=== PATIENT | female | born 1945 | race Caucasian/White ===

== ENCOUNTER → 2025-04-20 10:43 | Outpatient (CLI) | payer MEDICARE, SELFPAY ==
--- NOTE | 2025-04-20 10:46 | DI.RAD.S_ITS ---
PROCEDURE: XR DEXA AXIAL SKELETON INDICATIONS: bilateral knee pain COMPARISON: None. FINDINGS: Lumbar Spine: Bone mineral density 1.019 g/cm2, T score -0.5. Left Femoral Neck: Bone mineral density 0.746 g/cm2, T score -0.9. Left Hip: Bone mineral density 0.799 g/cm2, T score -1.2. Fracture Risk Calculation (when applicable): 10-year fracture risk of a major osteoporotic fracture 12 percent and of a hip fracture 2.7 percent. (T score greater or equal to -1.0 to: NORMAL) (T score from -1.1 to -2.4: OSTEOPENIA) (T score less than or equal to -2.5: OSTEOPOROSIS) IMPRESSION: Osteopenia--- recommend repeat DEXA in 2-3 years for reassessment. Follow-up guidelines as follows: Osteoporosis: Consider a repeat DEXA and Vertebral Fracture Assessment (VFA) exam in 2 years or sooner if medically necessary, to reassess this patient's status. Osteopenia: Consider a repeat DEXA in 2-3 years to reassess this patient's status, or if there is a new clinical indication. Normal: Consider a repeat DEXA in 5 years or sooner, or if there is a new clinical indication. All treatment decisions require clinical judgment and consideration of individual patient factors, including patient preferences, comorbidities, previous drug use, risk factors not captured in the FRAX model (e.g., frailty, falls, vitamin D deficiency, increased bone turnover, interval significant decline in bone density ) and possible under- or over-estimation of fracture risk by FRAX. In addition, the NOF Guide recommends that FDA-approved medical therapies be considered in postmenopausal women and men age >= 50 years with a: * Hip or vertebral (clinical or morphometric) fracture * T-score of <=-2.5 at the spine or hip * Ten-year fracture probability by FRAX of >= 3% for hip fracture or >=20% for major osteoporotic fracture. Dictated by: Faizan Bennett M.D. on 04/20/2025 at 19:15 Approved by: Faizan Bennett M.D. on 04/20/2025 at 19:16
== END ==
LOC: RAD 10:45
PROVIDERS: PCP Family Medicine; Referring Provider Orthopaedic Surgery Adult Reconstructive Orthopaedic Surgery; Visit Provider Orthopaedic Surgery Adult Reconstructive Orthopaedic Surgery
DX: M85.89 Other specified disorders of bone density and structure, multiple sites (principal)
CPT/HCPCS: 77080; 77081

== ENCOUNTER 2025-05-31 09:43 | Emergency (ER) | payer MEDICARE, SELFPAY ==
[2025-05-31] VITALS (23 sets, daily range): BP systolic 122–172; BP diastolic 67–98; PULSE 25–92; RESP 17–42; TEMP 36.1; O2SAT 91–99; BMI 22.6
--- NOTE | 2025-05-31 09:53 | DI.RAD.S_ITS ---
PROCEDURE: XR SHOULDER RT MIN 2V INDICATIONS: fall,shoulder pain TECHNIQUE: 2 views of the shoulder were acquired. COMPARISON: None. FINDINGS/IMPRESSION: Inferior, anterior dislocation of the glenohumeral joint. Dictated by: Nitish Garcia M.D. on 05/31/2025 at 10:17 Approved by: Nitish Garcia M.D. on 05/31/2025 at 10:19
--- NOTE | 2025-05-31 09:58 | ED_ITS ---
HPI - Fall General Chief Complaint: Fall Stated Complaint: DISLOCATED SHOULDER RT, FALL TRIP Time Seen by Provider: 05/31/25 09:54 Source: patient Mode of arrival: Ambulatory History of Present Illness HPI Narrative: Patient here with for complaints of right shoulder pain/possible dislocation. Patient was walking her dog tripped fell and landed on her right shoulder. There is drop off deformity of the right shoulder. No elbow wrist or hand/forearm injury/pain. Patient is not on blood thinners. Patient has had dislocation of the left shoulder in the past with relocation. Related Data Home Medications ?Medication ?Instructions ?Recorded ?Confirmed cyclosporine 0.05 % eye drops in a 1 drp OPHTH ##0 04/1805/18/25 dropperette (Restasis) multivitamin (Multiple Vitamins ##0 03/10/17 05/18/25 tablet) Previous Rx's ?Medication ?Instructions ?Recorded diclofenac sodium 3 % topical gel 1 applic topical BID #100 grams 05/18/25 Allergies Allergy/AdvReac Type Severity Reaction Status Date / Time No Known Allergies Allergy Uncoded 05/31/25 09:51 Review of Systems Review of Systems Narrative: GENERAL: Negative chills, fatigue, malaise, fever, sweats. HEENT: Negative sinus pain, ear pain, sore throat RESPIRATORY: Negative dyspnea, cough CARDIOVASCULAR: Negative chest pain, palpitations GASTROINTESTINAL: Negative vomiting, nausea, abdominal pain : Negative dysuria, frequency, hematuria MUSCULOSKELETAL: Positive muscle or bony pain SKIN: Negative rash, skin lesions NEUROLOGIC: Negative weakness, numbness ROS Unobtainable: All systems reviewed & are unremarkable except as noted in HPI and below Patient History Medical History (Updated 05/31/25 @ 12:02 by Andrei Kidd MD) Primary osteoarthritis of both knees Social History Smoking Status: Unknown if ever smoked Smoking Status: Unknown if ever smoked Exam Narrative Exam Narrative: GENERAL: in no distress, not toxic not dyspneic HEAD: Normocephalic. EYES: Pupils equal round ENT: Mucous membranes moist. NECK: Trachea midline. No midline tenderness or step-off. CARDIOVASCULAR: Regular rate and rhythm RESPIRATORY: Clear to auscultation. Breath sounds equal bilaterally. No wheezes, rales, or rhonchi. GASTROINTESTINAL: Abdomen soft, non-tender BACK: No flank tenderness. EXTREMITIES: Examination right upper extremity there is drop off anterior right shoulder. Limited range of motion due to deformity and pain. Strong right bus assistant and radial pulse brisk cap refills light touch intact to fingers and thumb, nontender elbow and wrist. NEURO: AOx4. Clear speech SKIN: Warm and dry PSYCH: Not anxious, is cooperative Initial Vital Signs Initial Vital Signs: Vital Signs Temperature 97.0 F L 05/31/25 09:49 Pulse Rate 92 H 05/31/25 09:49 Respiratory Rate 17 05/31/25 09:49 Blood Pressure 161/80 H 05/31/25 09:49 Pulse Oximetry 95 05/31/25 09:49 Oxygen Delivery Method Room Air 05/31/25 09:49 Procedures Orthopedic Joint Reduction Joint #1: Time of procedure: 11:49 Time Out Performed: Yes Side: right Joint Reduction Location: shoulder Analgesia: procedural sedation Shoulder Technique Used (if applicable): traction/counter-traction Technique used: traction/counter-traction Post-reduction neuro exam: intact Post-reduction vascular: intact Post Reduction X-Ray Obtained: Yes Post Reduction X-Ray Results: reduced Patient Tolerated Procedure: Well and No complications Additional Comments: Sling applied Procedural Sedation Time of procedure: 11:40 Consent signed: Yes Time out performed: Yes Indication: fracture/dislocation reduction Presedation Evaluation: Airway assessed prior to start of procedure? [Y/N] Procedural Sedation Time of Procedure: 1142 a.m. Consent Signed: Yes ASA Class: 1 Mallampati Airway Classification: 1 Time Out Performed: Yes Indication: Right shoulder dislocation Preparation: student success coach pulse oximeter capnometry supplemental oxygen applied reversal agents available suction and airway equipment at bedside and IV secured Bedside and IV Secured: Yes IV Propofol Dose (mg): 60 mg ED Sedation Level: Moderate Patient Tolerated Procedure: Very well Complications: None ASA Class: I Mallampati Airway Classification: Class I Time of Last PO Intake: 07:00 Preparation: slice plug cutter operator helper applied, pulse oximeter, capnometry used, supplemental O2 applied, reversal agents at bedside, suction/airway equipment at bedside and IV secured IV Propofol dose (mg): 60 Intraservice time/total sedation time (min): 2 ED Sedation Level: Moderate (Concious) Patient Tolerated Procedure: Well and No complications Complications: none Course Orders Ordered: ED Orders 05/31/25 09:53 XR shoulder RT 2+ views Stat 05/31/25 11:56 XR shoulder RT 1V Stat Discontinued Medications Fentanyl (Fentanyl 100 Mcg/2 Ml Inj) 100 mcg IV NOW ONE Stop: 05/31/25 09:58 Last Admin: 05/31/25 10:11 Dose: 100 mcg Documented By: PAMELA Hydromorphone HCl (Hydromorphone 1 Mg/Ml Syringe) 1 mg IV NOW ONE Stop: 05/31/25 11:16 Last Admin: 05/31/25 11:30 Dose: 1 mg Documented By: BETSY Ondansetron HCl (Ondansetron 4 Mg/2 Ml Inj) 4 mg IV NOW ONE Stop: 05/31/25 09:58 Last Admin: 05/31/25 10:11 Dose: 4 mg Documented By: PAMELA Ondansetron HCl (Ondansetron 4 Mg Odt) 4 mg SL NOW ONE Stop: 05/31/25 13:34 Last Admin: 05/31/25 13:36 Dose: 4 mg Documented By: BETSY Propofol (Propofol 200 Mg/20 Ml Vial) 60 mg 1 mg/kg (60 mg) IV NOW ONE Stop: 05/31/25 11:31 Last Admin: 05/31/25 11:44 Dose: 60 mg Documented By: BETSY Vital Signs Vital signs: Vital Signs - 8 hr 05/31/25 09:49 05/31/25 11:32 05/31/25 11:35 Temperature 97.0 F L Pulse Rate 92 H 75 25 L Respiratory Rate 17 25 H 28 H Blood Pressure 161/80 H 165/91 H 167/98 H Pulse Oximetry 95 97 97 Oxygen Delivery Method Room Air Room Air 05/31/25 11:40 05/31/25 11:45 05/31/25 11:50 Temperature Pulse Rate 77 69 69 Respiratory Rate 28 H 19 25 H Blood Pressure 172/96 H 165/91 H 153/82 H Pulse Oximetry 97 97 96 Oxygen Delivery Method Room Air Room Air 05/31/25 11:55 05/31/25 11:58 05/31/25 11:59 Temperature Pulse Rate 60 68 66 Respiratory Rate 23 22 25 H Blood Pressure 153/74 H 153/82 H Pulse Oximetry 96 98 Oxygen Delivery Method Room Air 05/31/25 12:00 05/31/25 12:03 05/31/25 12:10 Temperature Pulse Rate 70 74 70 Respiratory Rate 23 42 H 17 Blood Pressure 151/88 H Pulse Oximetry 96 95 96 Oxygen Delivery Method Room Air 05/31/25 12:10 05/31/25 12:16 05/31/25 12:16 Temperature Pulse Rate 72 Respiratory Rate 28 H Blood Pressure 147/77 H 144/72 H Pulse Oximetry 96 Oxygen Delivery Method 05/31/25 12:20 05/31/25 12:20 05/31/25 12:25 Temperature Pulse Rate 71 Respiratory Rate 29 H Blood Pressure 149/76 H 149/77 H Pulse Oximetry 97 Oxygen Delivery Method 05/31/25 12:25 05/31/25 12:30 05/31/25 12:30 Temperature Pulse Rate 66 67 Respiratory Rate 29 H 28 H Blood Pressure 157/75 H Pulse Oximetry 96 97 Oxygen Delivery Method 05/31/25 12:35 05/31/25 12:35 05/31/25 12:40 Temperature Pulse Rate 68 70 Respiratory Rate 22 22 Blood Pressure 153/67 H Pulse Oximetry 97 96 Oxygen Delivery Method 05/31/25 12:40 05/31/25 12:51 05/31/25 12:51 Temperature Pulse Rate 66 Respiratory Rate 24 Blood Pressure 149/86 H 135/72 Pulse Oximetry 95 Oxygen Delivery Method 05/31/25 12:55 05/31/25 13:05 05/31/25 13:05 Temperature Pulse Rate 69 Respiratory Rate 21 Blood Pressure 134/74 136/71 Pulse Oximetry 91 Oxygen Delivery Method 05/31/25 13:10 05/31/25 13:15 05/31/25 13:15 Temperature Pulse Rate 68 Respiratory Rate 18 Blood Pressure 122/76 154/80 H Pulse Oximetry 95 Oxygen Delivery Method MDM - Fall Lab Data Labs: Point of Care Testing Test Results Not applicable Imaging Data Extremity x-ray #1: Radiologist's Impression: [address] [address] XRay Report Signed Patient: Vicky Granados MR#: [id number] : 1945 Acct:[id number] Age/Sex: 79 / F Date of Service: 05/31/25 Loc: ED Accession Number: [id number] Procedure: XR shoulder RT 2+ views Ordering Provider: Andrei Kidd MD PROCEDURE: XR SHOULDER RT MIN 2V INDICATIONS: fall,shoulder pain TECHNIQUE: 2 views of the shoulder were acquired. COMPARISON: None. FINDINGS/IMPRESSION: Inferior, anterior dislocation of the glenohumeral joint. Dictated by: Nitish Garcia M.D. on 05/31/2025 at 10:17 Approved by: Nitish Garcia M.D. on 05/31/2025 at 10:19 Extremity x-ray #2: Radiologist's Impression: [address] [address] XRay Report Signed Patient: Vicky Granados MR#: [id number] : 1945 Acct:[id number] Age/Sex: 79 / F Date of Service: 05/31/25 Loc: ED Accession Number: [id number] Procedure: XR shoulder RT 1V Ordering Provider: Andrei Kidd MD PROCEDURE: XR SHOULDER RT 1V INDICATIONS: Postreduction TECHNIQUE: 1 views of the shoulder were acquired. COMPARISON: [facility], , XR SHOULDER RT 2+ VIEWS, 05/31/2025, 9:48. FINDINGS: Bones: Satisfactory reduction of previous anterior shoulder dislocation. No Hill-Sachs deformity noted. Glenohumeral joint degenerative change. Soft tissues: No suspicious soft tissue calcifications. IMPRESSION: Satisfactory reduction of shoulder dislocation. Dictated by: Daniel Mitchell M.D. on 05/31/2025 at 12:31 Approved by: Daniel Mitchell M.D. on 05/31/2025 at 12:31 [facility] Narrative Medical decision making narrative: Patient here with for complaints of right shoulder pain/possible dislocation. Patient was walking her dog tripped fell and landed on her right shoulder. There is drop off deformity of the right shoulder. No elbow wrist or hand/forearm injury/pain. Patient is not on blood thinners. Patient has had dislocation of the left shoulder in the past with relocation MDM After history and exam, fentanyl Zofran x-ray right shoulder, possible procedural sedation for closed reduction Differential considered: Includes but not limited to shoulder dislocation/strain sprain Medical records reviewed: No recent visit for this complaint Imaging studies independently reviewed: X-ray right shoulder inferior anterior dislocation, repeat x-ray right shoulder post reduction, anatomically reduced. Consultations: Patient has established orthopedic, Dr. Starks to follow up with. Re-evaluations: 11:00 a.m.. Reviewed results with patient and she does agree for consent for procedural sedation and closed reduction of the right shoulder. She states she would like her friend to sign for her. She is awake alert orient x4. Procedural sedation time-out at 11:42 a.m.., start of sedation 11:49 a.m.. Completion at 11:50 a.m.. Patient awake alert oriented x4. Clear speech. No hypoxia no tachypnea airway intact. Patient in no respiratory distress. 12:42 p.m.. Patient remains awake alert oriented x4. Airway intact. No respiratory distress. Reviewed with her results and treatment plan and follow up. She agrees. She has a driver material handler. Discussion: Appropriate for discharge home. Exam is reassuring. Return precautions reviewed with patient. Pain is controlled. Patient has established orthopedic provider to follow up with Dr. Starks. Patient has a driver material handler. Diagnosis: Right shoulder dislocation Discharge Plan Departure Patient Disposition: Home Clinical Impression: Anterior dislocation of right shoulder Qualifiers: Encounter type: initial encounter Qualified Code(s): S43.014A - Anterior disloc ation of right humerus, initial encounter Instructions: DI for Shoulder Dislocation, DI for Moderate Sedation Activity Restrictions/Additional Instructions: No driving operating machinery until seen by orthopedic provider for clearance. May continue ibuprofen or Tylenol for pain. Use sling until office appointment time. Return if worse if any questions or concerns. Prescriptions: No Action multivitamin [Multiple Vitamins] 1 EACH tablet Qty: 0 cyclosporine [Restasis] 1 EACH dropperette 1 drp OPHTH Qty: 0 diclofenac sodium 3 % gel 1 applic topical BID Qty: 100 0RF Referrals: Anderson Ambrosio MD [Physician, Orthopedic Surgery] Amina Beth DO [Primary Care Provider, Family Practice] Stand Alone Forms: Patient Portal/API
--- NOTE | 2025-05-31 10:01 | PC.NURSE ---
Pt has strong right radial pulse. CMS intact
[2025-05-31] MEDS: ONDANSETRON 4 MG/2 ML INJ IV (10:11)
[2025-05-31] MEDS: fentaNYL 100 MCG/2 ML INJ IV (10:11)
--- NOTE | 2025-05-31 11:56 | DI.RAD.S_ITS ---
PROCEDURE: XR SHOULDER RT 1V INDICATIONS: Postreduction TECHNIQUE: 1 views of the shoulder were acquired. COMPARISON: [facility], CR, XR SHOULDER RT 2+ VIEWS, 05/31/2025, 9:48. FINDINGS: Bones: Satisfactory reduction of previous anterior shoulder dislocation. No Hill-Sachs deformity noted. Glenohumeral joint degenerative change. Soft tissues: No suspicious soft tissue calcifications. IMPRESSION: Satisfactory reduction of shoulder dislocation. Dictated by: Daniel Mitchell M.D. on 05/31/2025 at 12:31 Approved by: Daniel Mitchell M.D. on 05/31/2025 at 12:31
--- NOTE | 2025-05-31 12:32 | PC.NURSE ---
1110: Report received, care assumed
[2025-05-31] MEDS: ONDANSETRON 4 MG ODT SL (13:36)
== END 2025-05-31 13:40 | disposition home or self-care (01) ==
PROVIDERS: Emergency Provider Emergency Medicine; PCP Family Medicine
DX: S43.014A Anterior dislocation of right humerus, initial encounter (principal); W01.0XXA Fall on same level from slipping, tripping and stumbling without subsequent striking against object, initial encounter
CPT/HCPCS: 23650; 73020; 73030; 96374; 96375; 99285; J1171; J2405; J2704; J3010